=== PATIENT | female | born 1980 | race Caucasian/White ===

== ENCOUNTER → 2017-05-23 15:51 | Outpatient (CLI) | payer MEDICAID, SELFPAY | PROVIDERS: Visit Provider Obstetrics & Gynecology | DX: R30.0 Dysuria (principal) | CPT/HCPCS: 87086; 87088; 87186 ==

== ENCOUNTER → 2017-06-15 16:36 | Outpatient (CLI) | payer MEDICAID, SELFPAY | PROVIDERS: Visit Provider Obstetrics & Gynecology | DX: R31.9 Hematuria, unspecified (principal) | CPT/HCPCS: 87086 ==

== ENCOUNTER → 2017-07-06 15:47 | Outpatient (CLI) | payer MEDICAID, SELFPAY ==
[2017-07-06 17:37] LABS: Follicle Stimulating Hormone 148.4 mIU/mL; Thyroid Stim Hormone (TSH) 1.29 uIU/mL (0.358-3.74)
[2017-07-06 18:40] LABS: Chlamydia Trachomatis by PCR Negative (Negative); Neisserai gonorrhoeae by PCR Negative (Negative); Probe Check PASS; Sample Adequacy Control PASS; Specimen Processing Control PASS
[2017-07-12 15:55] LABS: HPV Reflexed? NOT INDICATED
== END ==
PROVIDERS: Visit Provider Obstetrics & Gynecology
DX: Z12.4 Encounter for screening for malignant neoplasm of cervix (principal); R30.0 Dysuria
CPT/HCPCS: 36415; 83001; 84443; 87086; 87088; 87491; 87591; 88175; G0145

== ENCOUNTER 2018-08-17 15:00 | Emergency (ER) | payer MEDICAID, SELFPAY ==
[2018-08-17 15:01] VITALS: BP 135/85; PULSE 87; RESP 16; TEMP 36.6; O2SAT 100; BMI 24.7
[2018-08-17 15:42] LABS: Absolute Lymphocyte Count 1.45 X10^3/ul (0.83-4.51); Absolute Neutrophil Count 7.9 X10^3/uL (2.0-7.7); Basophil# 0.04 X10^3/uL; Basophil% 0.4 % (0-1); Eosinophil# 0.11 X10^3/uL; Eosinophils% 1.1 % (0-5); Hematocrit 43.2 % (37-47); Hemoglobin 14.6 g/dl (12.0-15.0); Lymphocyte # 1.45 X10^3/ul (4.0); Lymphocyte % 14.6 % (19-41); Mean Corp Hgb Conc 33.8 g/gl (32-36); Mean Corpuscular Volume 97.5 fL (81-99); Monocyte# 0.41 X10^3/uL; Monocyte% 4.1 % (0-10); Neutrophil % 79.5 % (47-70); Platelet Count 213 K/mm3 (150-450); RBC Distribution Width CV 12.1 % (11.6-14.6); RBC Distribution Width SD 42.2 fl (35.1-43.9); Red Blood Count 4.43 M/mm3 (4.2-5.4); White Blood Count 9.9 K/mm3 (4.4-11.0)
[2018-08-17 15:49] LABS: POSITIVE COUNT NO; POSITIVE DIFFERENTIAL NO; POSITIVE MORPHOLOGY NO
[2018-08-17 15:51] LABS: Bacteria 0 SEEN /hpf (None Seen); Mucous, Urine 0 SEEN /hpf (<or=2+); White Blood Cells 0 SEEN /hpf (0-5)
[2018-08-17 16:11] LABS: Color, Urine Yellow (Yellow); Glucose, Dipstick Normal (Normal); Ketone-Dipstick Negative (Negative); Leukocyte Esterase-Dipstick 25 /ul (Negative); Nitrite-Dipstick Negative (Negative); Occult Blood-Urine 25 /ul (Negative); Protein-Dipstick Negative (Negative); Urine Bilirubin Dipstick Negative (Negative); Urine Clarity Clear (Clear); Urine Urobilinogen Normal (Normal)
--- NOTE | 2018-08-17 16:11 | ED.DCSUM_ITS ---
- ER Visit Summary Date of Service: 08/17/18 Chief Complaint: Abdominal pain, nausea, constipation History of Present Illness: The patient is a 37 F who presents with nausea and constipation that began today. Patient states she has had some similar episodes in the past without a definitive diagnosis. Patient states she has some throbbing pain over her tailbone area. Patient states she has been constipated recently. Patient denies any vomiting. Patient states she does have some pain in her lower abdomen. Patient admits to subjective chills but denies any fevers. Physical Examination: Vital signs are stable. Patient is afebrile. Patient is in no acute distress. Oral mucosa is pink and moist. Neck is supple. Trachea is midline. There is no JVD noted. Heart was regular rate and rhythm. Lungs are clear and equal bilateral. Abdomen is soft bowel sounds are normal. There is some mild lower abdominal tenderness. There is no rebound or guarding noted. Musculoskeletal exam reveals tenderness over the right sacroiliac area. There is no midline tenderness. Test Results: CBC was normal. Basic metabolic profile was normal. Urinalysis does not show any evidence of urinary tract infection. Serum hCG was negative. Acute abdominal x-rays were obtained. There is nonspecific bowel gas pattern. There is no evidence of obstruction or constipation. Emergency Department Course and Treatment: Patient was given Zofran here. Patient was feeling better on reevaluation. Patient was instructed to follow-up with her primary care physician in 5 to 7 days. Patient understood and was agreeable with the plan. All questions were answered. Disposition: Discharge home Impression: Abdominal pain This note was generated with [employer] dictation software. It may contain incorrect words, spelling, and punctuation that were not noted in review of the chart prior to signing ED Disposition - Plan for ED Patient: Disposition: Home or Assisted Living Diagnosis: Abdominal pain Instructions: ED Abdominal Pain Unkn Cause Referrals: NOT,DEFINED [NON-STAFF] - 5-7 Days
[2018-08-17 16:15] LABS: Anion Gap 8 (5-15); BUN 16 mg/dL (7-18); BUN/Creat Ratio 18.8 RATIO (10-20); Calcium,Total 8.9 mg/dL (8.5-10.1); Chloride 105 mmol/L (98-107); Creatinine, Serum 0.85 mg/dL (0.55-1.02); EST Glomerular Filtration Rate 80 mL/min (>60); Est Glom Filt Rate - Afr Amer 97 mL/min (>60); Estimated Creatinine Clearance 75.69 ml/min; Glucose 87 mg/dL (74-106); Potassium 4.6 mmol/L (3.5-5.1); Sodium Level 139 mmol/L (136-145)
[2018-08-17 16:24] LABS: Internal QC Validated? YES +Cl - CLEAR BKGD; Pregnancy, Serum, hCG Quali. NEGATIVE Negative
[2018-08-17 16:33] LABS: Red Blood Cells-Urine 0-5 SEEN /hpf (0-5); Squamous Epithelial Cells - UA 0-5 SEEN /hpf (5-10)
[2018-08-17 16:46] VITALS: BP 113/74; PULSE 69; RESP 16; TEMP 36.8; O2SAT 99
[2018-08-17] MEDS: Ondansetron 4 MG/2 ML Vial IV (16:47)
--- NOTE | 2018-08-17 16:56 | RAD_ITS ---
STUDY: X-RAY - ACUTE ABDOMINAL SERIES REASON FOR EXAM: Female, 37 years old. Pain TECHNIQUE: Single view of the chest. Supine, 2 view(s) of the abdomen were obtained. COMPARISON: None. FINDINGS: The lungs are clear. There are no pleural effusions. There is no pneumothorax. The heart is normal in size. There is no bowel obstruction. There is air and stool to the level of the rectum. The visualized osseous structures are within normal limits. RAD/Acute Abdomen Inc Chest IMPRESSION: Clear lungs. No bowel obstruction. Electronically Signed: Timothy Penny, at 17:15 EDT Tel , Service support ,
== END 2018-08-17 17:27 | disposition home or self-care (01) ==
PROVIDERS: Emergency Provider Emergency Medicine
DX: R10.9 Unspecified abdominal pain (principal); K59.00 Constipation, unspecified; M54.9 Dorsalgia, unspecified; R11.0 Nausea; F17.210 Nicotine dependence, cigarettes, uncomplicated
CPT/HCPCS: 74022; 80048; 81001; 84703; 85025; 96374; 99283; A4216; J2405

== ENCOUNTER 2022-01-28 11:24 | Emergency (ER) | payer MEDICAID, SELFPAY ==
[2022-01-28 11:25] VITALS: BP 138/117; PULSE 114; RESP 18; TEMP 35.8; O2SAT 98; BMI 28.3
--- NOTE | 2022-01-28 11:43 | EDS_ITS ---
HPI History of Present Illness Chief Complaint: General Illness Informant: patient Onset/Context/Timing Onset: Days Context: Gradual Onset Timing: Continuous Current Severity: Mild Maximum Severity: Mild Narrative Narrative: 41-year-old female no seen past medical or surgical history. No prior abdominal surgeries. States whenever she eats for the last 4 days she gets gassy, starts having nausea vomiting and signs of diarrhea. She did have a fever about 4 days ago which is since resolved. Denies any dysuria or hematuria. No chills. Currently no abdominal pain. Prior similar symptoms: No Recent Illness/Hospitalization: No PFSH PFSH Medical History no medical history no medical history Home Medications ondansetron 4 mg disintegrating tablet 4 mg PO Q6H PRN nausea and vomiting #7 tabs 01/28/22 [Rx Last Taken Unknown] Allergy/AdvReac Type Severity Reaction Status Date / Time No Known Allergies Allergy Verified 01/28/22 11:26 Surgical History no surgical history no surgical history Social History Smoking Status: Current every day smoker tobacco type: cigarettes ROS ROS ED ROS Narrative Nausea, vomiting and diarrhea. Fever resolved. Review of Systems ROS Unobtainable: Denies due to encephalopathy Constitutional Constitutional ED: Reports fever(s); Denies chills Eyes Eyes: Denies blurry vision ENT ENT ED: Denies ear pain Cardiovascular Cardiovascular: Denies chest pain or palpitations Respiratory/Chest Respiratory/Chest: Denies cough or dyspnea Gastrointestinal Gastrointestinal: Reports diarrhea, nausea and vomiting; Denies abdominal pain, constipation or melena Genitourinary Genitourinary ED: Denies dysuria or hematuria Musculoskeletal Musculoskeletal: Denies arthralgias Integumentary Denies abscess Neurologic Neurologic: Denies headache(s) Psychiatric Psychiatric: Denies anxiety Endocrine Endocrinology: Denies cold intolerance Hematologic/Lymphatic Hematologic/Lymphatic: Reports none Allergic/Immunologic Allergic/Immunologic ED: Denies mouth swelling or tongue swelling EXAM Physical Exam Narrative Exam Narrative: 41-year-old female no acute distress vital signs stable afebrile. She is anxious and tearful. H EENT exam unremarkable. Mildly dry mucous membranes but tears in her eyes. Neck nontender no meningismus. Lungs clear to auscultation bilaterally. Heart regular rhythm rate about 110 no murmur. Abdomen soft, nontender, nondistended with normal bowel sounds. No peritoneal signs. No significant tenderness. No Mota sign McBurney's point tenderness. No hernia or mass. No signs of obstruction. Back nontender. Moving all 4 extremities. No edema. Neurologically she is awake and alert no focal motor deficits. Const Vital Signs: 01/28/22 11:25 01/28/22 11:45 Temperature 96.4 F L Temperature Source Temporal Pulse Rate 114 H Respiratory Rate 18 Respiratory Effort Normal Respiratory Pattern Normal Blood Pressure 138/117 H Blood Pressure Mean 124 Pulse Ox 98 Oxygen Delivery Method Room Air Positive well nourished and well developed; Negative for cachectic, contractures or unkempt General Appearance ED: well developed and NAD; Negative for unkempt, cachectic, contractures, cyanotic, diaphoretic or pallor Nutritional Appearance: Negative for cachectic HEENT Reports dry mucous membranes; Denies moist mucous membranes Negative for trauma Mouth ED: Yes dry mucous membranes Mouth: dry mucous membranes Eyes PERRL and EOMs intact bilaterally General Eye ED: Negative for pale conjunctiva or scleral icterus Neck no lymphadenopathy, supple and no JVD General: Negative for tenderness Lymph Lymphatic: Negative for other Chest Wall inspection of chest normal and palpation of chest normal Resp normal respiratory effort and clear to auscultation bilaterally Effort and Inspection: Negative for retractions Auscultation: Negative for rales or rhonchi Cardio regular rhythm, S1 normal heart sound, S2 normal heart sound and no murmurs; Negative for regular rate Rate: tachycardic Rhythm: Negative for abnormal rhythm GI normal to inspection, nondistended, normoactive bowel sounds, non-tender, non- distended, hepatosplenomegaly and no masses Inspection: Negative for abdominal distention Auscultation: normoactive bowel sounds Palpation: soft; Negative for tender, guarding or splenomegaly Back/Spine no CVA tenderness General Back: Negative for CVA tenderness Cervical Spine: Negative for cervical spine tenderness Thoracic Spine / Upper Back: Negative for thoracic spinal tenderness Lumbar Spine / Lower Back: Negative for lumbar spinal tenderness Extremity normal to inspection General Extremety ED: Negative for edema or tenderness General Extremity: Negative for edema Neuro oriented x3 and CN's II-XII intact bilaterally Sensorium / Orientation: alert; Negative for orientation impaired or stuporous Motor Exam: strength 5/5 throughout Psych mental status grossly normal Appearance: Negative for unkempt Attitude: agitated Mood & Affect: tearful; Negative for depressed or anxious Skin no rashes or lesions noted, no wounds and skin turgor normal General Skin Exam: elasticity normal; Negative for jaundice or pallor Lesions: No lesion noted Rashes: No rashes noted Trauma: Negative for abrasion Wounds: Negative for wounds noted MDM MDM MDM Narrative Medical decision making narrative: 41-year-old with nausea vomiting and diarrhea when she eats. Abdomen is benign. Differential would include viral gastroenteritis versus gallbladder disease versus other. She clinically appears to be mildly dehydrated. She will be given IV fluids, Zofran. Screening labs to be obtained. No imaging needed at this time if labs are substantially abnormal that will be a consideration. Repeat exam patient doing well at 12:45 PM. Abdomen is completely benign. No right upper or right lower discussed all of her test results. Clinically this will be treated as a viral gastroenteritis. She will be given another dose of IV Zofran prior to discharge. She is currently drinking p.o. fluids. I will send a prescription of Zofran to her pharmacy. Lab Data Attestation: I reviewed the patient's lab results. Lab results narrative: CBC White count 4.2. H&H is 16.9 and 49. Platelets are slightly low at iron 34,000. Electrolytes potassium 3.3 gap of 10 BUN and creatinine of 17 and 1. Liver enzymes are normal other than AST is 66. Lipase normal 171. Labs: Laboratory Results - last 24 hr 01/28/22 01/28/22 11:50 11:50 WBC 4.2 L RBC 4.93 Hgb 16.9 H Hct 49.6 H MCV 100.6 H MCH 34.3 H MCHC 34.1 RDW Std Deviation 44.4 H RDW Coeff of Varinder 11.9 Plt Count 134 L MPV 11.4 Immature Gran % (Auto) 1.700 H Neut % (Auto) 61.3 Lymph % (Auto) 27.6 [place] % (Auto) 8.2 Eos % (Auto) 0.7 Baso % (Auto) 0.5 Absolute Neuts (auto) 2.6 Absolute Lymphs (auto) 1.15 Nucleated RBC % 0 Sodium 136 Potassium 3.3 L Chloride 101 Carbon Dioxide 25.0 Anion Gap 10 BUN 17 Creatinine 1.07 H Estim Creat Clear Calc 57.81 Est GFR (MDRD) Af Amer 73 Est GFR (MDRD) Non-Af 60 BUN/Creatinine Ratio 15.9 Glucose 104 Calcium 9.4 Total Bilirubin 0.60 AST 66 H ALT 50 Alkaline Phosphatase 77 Total Protein 7.9 Albumin 4.0 Globulin 3.9 Albumin/Globulin Ratio 1.0 Lipase 171 Discharge Plan Triage Chief Complaint: General Illness ED Provider: Perfecto Stevenson Dx/Rx/DC Orders Clinical Impression: Viral gastroenteritis, Acute dehydration Instructions: ED Gastroenteritis, Viral (Adult) Prescriptions: New ondansetron 4 mg tablet,disintegrating 4 mg PO Q6H PRN (Reason: nausea and vomiting) Qty: 7 0RF Primary Care Provider: Care Physician,No Primary Referrals: Suresh Giang MD [Med Staff - [employer]] - 3-5 Days if not improving Care Physician,No Primary [Primary Care Provider] - Activity Restrictions/Additional Instructions: Your labs were unremarkable other than your platelet count was just below normal as was your potassium both of those should improve. This appears to be a viral gastroenteritis. Plenty of fluids and rest. Increase diet slowly as tolerated. Zofran as needed for nausea which she may swallow or let it dissolve on your tongue. Follow-up if not improving or return if feeling worse. If not improving we may need to get an ultrasound of your gallbladder but not at this time. Disposition Disposition: Home, Self Care
[2022-01-28] MEDS: 0.9% Normal Saline 1,000 ML 1000 ML IV (11:51)
[2022-01-28] MEDS: Ondansetron 4 MG/2 ML Vial IV ×2 (11:52→13:01)
[2022-01-28 12:07] LABS: Absolute Lymphocyte Count 1.15 X10^3/uL (0.83-4.51); Absolute Neutrophil Count 2.6 X10^3/uL (2.0-7.7); Basophil# 0.02 X10^3/uL; Basophil% 0.5 % (0-1); Eosinophil# 0.03 X10^3/uL; Eosinophils% 0.7 % (0-5); Hematocrit 49.6 % (37-47); Hemoglobin 16.9 g/dL (12.0-15.0); Lymphocyte # 1.15 X10^3/ul (0.83-4.51); Lymphocyte % 27.6 % (19-41); Mean Corp Hgb Conc 34.1 g/dL (32-36); Mean Corpuscular Hgb 34.3 pg (27.0-32.0); Mean Corpuscular Volume 100.6 fL (81-99); Mean Platelet Vol. 11.4 fl (6.2-12.0); Monocyte# 0.34 X10^3/uL; Monocyte% 8.2 % (0-10); NRBC Flagged by Analyzer 0 % (0-5); Neutrophil # 2.56 X10^3/uL (2.7-7.7); Neutrophil % 61.3 % (47-70); Platelet Count 134 K/mm3 (150-450); RBC Distribution Width CV 11.9 % (11.6-14.6); RBC Distribution Width SD 44.4 fl (35.1-43.9); Red Blood Count 4.93 M/mm3 (4.2-5.4); White Blood Count 4.2 K/mm3 (4.4-11.0)
--- NOTE | 2022-01-28 12:10 | CM.ED ---
SW Note Referral Source: Case Find Referral Reason: No Primary Care Physician (PCP) SW reviewed chart and noted that patient has no PCP. SW provided patient with list of [facility] Physician List for reference. SW also provided patient with handout ?Where to go When?. No other issues or concerns voiced at this time. SW remains available for any additional needs. Plan: Provided patient with PCP information Sabrina OLGUIN
[2022-01-28 12:20] LABS: AST(SGOT) 66 U/L (15-37); Alanine Aminotransfer ALT/SGPT 50 U/L (13-56); Alkaline Phosphatase 77 U/L (45-117); Anion Gap 10 (5-15); BUN 17 mg/dL (7-18); BUN/Creat Ratio 15.9 RATIO (10-20); Calcium,Total 9.4 mg/dL (8.5-10.1); Chloride 101 mmol/L (98-107); Creatinine, Serum 1.07 mg/dL (0.55-1.02); EST Glomerular Filtration Rate 60 mL/min (>60); Est Glom Filt Rate - Afr Amer 73 mL/min (>60); Estimated Creatinine Clearance 57.81 ml/min; Globulin 3.9 g/dL (2.2-4.2); Glucose 104 mg/dL (74-106); Lipase 171 U/L (73-393); Potassium 3.3 mmol/L (3.5-5.1); Protein, Total 7.9 g/dL (6.4-8.2); Sodium Level 136 mmol/L (136-145)
== END 2022-01-28 13:08 | disposition home or self-care (01) ==
PROVIDERS: Emergency Provider Emergency Medicine; Visit Provider Emergency Medicine
DX: E86.0 Dehydration (principal); A08.4 Viral intestinal infection, unspecified; F17.210 Nicotine dependence, cigarettes, uncomplicated
CPT/HCPCS: 80053; 83690; 85025; 96361; 96374; 96376; 99283; J7030; A4216; J2405

== ENCOUNTER 2022-02-01 07:58 | Emergency (ER) | payer MEDICAID, SELFPAY ==
[2022-02-01 07:58] VITALS: BP 127/100; PULSE 116; RESP 14; TEMP 36.3; O2SAT 98; BMI 28.3
--- NOTE | 2022-02-01 08:11 | EDS_ITS ---
HPI History of Present Illness Chief Complaint: Nausea/Vomiting Informant: patient Narrative Narrative: 41-year-old female presenting to the emergency room with vomiting and diarrhea. She was seen at the end of last week for same and was prescribed Zofran after r eceiving IV fluids and basic blood work was obtained. She continues to have diarrhea and vomiting. She denies any current fevers. She describes the stool as brown and mucousy. She notes some fecal incontinence. She notes decreased urination and dry mouth. She states that she feels very dehydrated. She has been trying to drink water and Pedialyte but continues to vomit that up. No recent travel or bad food exposure. No recent antibiotics. No is no history of colitis. She does note that her youngest child was sick with vomiting and diarrhea for 2 days last week and the child has subsequently recovered. PFSH PFSH Medical History no medical history Home Medications ondansetron HCl 4 mg tablet 4 mg PO Q6H PRN nausea and vomiting #15 tabs 02/01/22 [Rx Last Taken Unknown] Allergy/AdvReac Type Severity Reaction Status Date / Time No Known Allergies Allergy Verified 02/01/22 07:59 Surgical History no surgical history Social History (Updated 02/01/22 @ 08:[address] Dhruv Mittal, DO) Smoking Status: Current every day smoker tobacco type: cigarettes substance use type: does not use ROS ROS ED Constitutional Constitutional ED: Denies chills, fever(s) or weight loss Eyes Eyes: Denies change in vision or diplopia ENT ENT ED: Denies ear pain, rhinorrhea or sore throat Cardiovascular Cardiovascular: Denies chest pain, orthopnea, palpitations or racing heartbeat Respiratory/Chest Respiratory/Chest: Denies cough, dyspnea or orthopnea Gastrointestinal Gastrointestinal: Reports diarrhea, nausea and vomiting; Denies abdominal pain Genitourinary Genitourinary ED: Denies dysuria, hematuria or urinary frequency Musculoskeletal Musculoskeletal: Denies arthralgias or myalgias Integumentary Denies abscess or rash Neurologic Neurologic: Denies headache(s) or weakness Psychiatric Psychiatric: Denies anxiety, depression, suicidal ideation or suicidal thoughts Endocrine Endocrinology: Denies polydipsia, polyphagia or polyuria Allergic/Immunologic Allergic/Immunologic ED: Denies mouth swelling, tongue swelling or urticaria EXAM Physical Exam Const Vital Signs: 02/01/22 07:58 Temperature 97.3 F L Temperature Source Temporal Pulse Rate 116 H Respiratory Rate 14 Blood Pressure 127/100 H Blood Pressure Mean 109 Pulse Ox 98 Oxygen Delivery Method Room Air Positive well nourished and well developed General Appearance ED: well developed HEENT Reports normocephalic, head/scalp atraumatic and dry mucous membranes Mouth ED: Yes dry mucous membranes Mouth: dry mucous membranes Eyes PERRL and EOMs intact bilaterally Neck no lymphadenopathy, supple and no JVD Resp normal respiratory effort and clear to auscultation bilaterally Cardio regular rate and no murmurs Rate: tachycardic GI normal to inspection, nondistended, normoactive bowel sounds and non-tender Palpation: soft Back/Spine no CVA tenderness and normal ROM Extremity normal to inspection General Extremety ED: Negative for edema General Extremity: Negative for edema Neuro oriented x3 and CN's II-XII intact bilaterally Sensorium / Orientation: alert Motor Exam: strength 5/5 throughout Psych mental status grossly normal Mood & Affect: Negative for depressed or tearful Skin no rashes or lesions noted and no wounds MDM MDM MDM Narrative Medical decision making narrative: Patient received 2 L of IV fluids as well as Zofran. CBC shows a white count of 4.5 and hemoglobin of 16.8. Platelet count is slightly thrombocytopenic at 107. She continues to be slightly hypokalemic at 3.1 with a CO2 of 19. Anion gap of 14 BUN 16 with a creatinine 0.81. The patient's abdominal exam is benign. Overall the patient clinically feels better and I would agree that she continues to have a viral gastroenteritis. I can write for some additional Zofran would also recommend Imodium as needed. Return if worsening or concerns Lab Data Attestation: I reviewed the patient's lab results. Labs: Laboratory Results - last 24 hr 02/01/22 02/01/22 08:25 08:25 WBC 4.5 RBC 4.92 Hgb 16.8 H Hct 48.7 H MCV 99.0 MCH 34.1 H MCHC 34.5 RDW Std Deviation 43.6 RDW Coeff of Varinder 11.9 Plt Count 107 L MPV 12.1 H Immature Gran % (Auto) 0.200 Neut % (Auto) 51.3 Lymph % (Auto) 38.7 [place] % (Auto) 8.4 Eos % (Auto) 0.7 Baso % (Auto) 0.7 Absolute Neuts (auto) 2.3 Absolute Lymphs (auto) 1.75 Nucleated RBC % 0 Sodium 139 Potassium 3.1 L Chloride 106 Carbon Dioxide 19.0 L Anion Gap 14 BUN 16 Creatinine 0.81 Estim Creat Clear Calc 76.37 Est GFR (MDRD) Af Amer 100 Est GFR (MDRD) Non-Af 83 BUN/Creatinine Ratio 19.7 Glucose 122 H Calcium 9.9 Total Bilirubin 1.40 H AST 83 H ALT 110 H Alkaline Phosphatase 76 Total Protein 8.0 Albumin 4.2 Globulin 3.8 Albumin/Globulin Ratio 1.1 Lipase 113 Discharge Plan Triage Chief Complaint: Nausea/Vomiting ED Provider: Dhruv Mittal Dx/Rx/DC Orders Clinical Impression: Viral gastroenteritis, Acute dehydration Instructions: ED Gastroenteritis, Viral (Adult) Prescriptions: New ondansetron HCl 4 mg tablet 4 mg PO Q6H PRN (Reason: nausea and vomiting) Qty: 15 0RF Primary Care Provider: Care Physician,No Primary Referrals: Care Physician,No Primary [Primary Care Provider] - Disposition Disposition: Home, Self Care
[2022-02-01] MEDS: 0.9% Normal Saline 1,000 ML 999 ML IV ×2 (08:26→09:14)
[2022-02-01] MEDS: Ondansetron 4 MG/2 ML Vial IV (08:27)
[2022-02-01 08:38] LABS: Absolute Lymphocyte Count 1.75 X10^3/uL (0.83-4.51); Absolute Neutrophil Count 2.3 X10^3/uL (2.0-7.7); Basophil# 0.03 X10^3/uL; Basophil% 0.7 % (0-1); Eosinophil# 0.03 X10^3/uL; Eosinophils% 0.7 % (0-5); Hematocrit 48.7 % (37-47); Hemoglobin 16.8 g/dL (12.0-15.0); Lymphocyte # 1.75 X10^3/ul (0.83-4.51); Lymphocyte % 38.7 % (19-41); Mean Corp Hgb Conc 34.5 g/dL (32-36); Mean Corpuscular Hgb 34.1 pg (27.0-32.0); Mean Platelet Vol. 12.1 fl (6.2-12.0); Monocyte# 0.38 X10^3/uL; Monocyte% 8.4 % (0-10); NRBC Flagged by Analyzer 0 % (0-5); Neutrophil # 2.32 X10^3/uL (2.7-7.7); Neutrophil % 51.3 % (47-70); Platelet Count 107 K/mm3 (150-450); RBC Distribution Width CV 11.9 % (11.6-14.6); RBC Distribution Width SD 43.6 fl (35.1-43.9); Red Blood Count 4.92 M/mm3 (4.2-5.4); White Blood Count 4.5 K/mm3 (4.4-11.0)
[2022-02-01 08:52] LABS: ALB/GLOB Ratio 1.1 RATIO (0.9-2.4); AST(SGOT) 83 U/L (15-37); Alanine Aminotransfer ALT/SGPT 110 U/L (13-56); Albumin, Serum 4.2 g/dL (3.2-5.0); Alkaline Phosphatase 76 U/L (45-117); Anion Gap 14 (5-15); BUN 16 mg/dL (7-18); BUN/Creat Ratio 19.7 RATIO (10-20); Calcium,Total 9.9 mg/dL (8.5-10.1); Chloride 106 mmol/L (98-107); Creatinine, Serum 0.81 mg/dL (0.55-1.02); EST Glomerular Filtration Rate 83 mL/min (>60); Est Glom Filt Rate - Afr Amer 100 mL/min (>60); Estimated Creatinine Clearance 76.37 ml/min; Globulin 3.8 g/dL (2.2-4.2); Glucose 122 mg/dL (74-106); Lipase 113 U/L (73-393); Potassium 3.1 mmol/L (3.5-5.1); Sodium Level 139 mmol/L (136-145)
[2022-02-01 10:02] VITALS: BP 128/90; PULSE 88; RESP 16; O2SAT 99
== END 2022-02-01 10:14 | disposition home or self-care (01) ==
PROVIDERS: Emergency Provider Emergency Medicine; Visit Provider Emergency Medicine
DX: E86.0 Dehydration (principal); A08.4 Viral intestinal infection, unspecified; R15.9 Full incontinence of feces; F17.210 Nicotine dependence, cigarettes, uncomplicated
CPT/HCPCS: 80053; 83690; 85025; 99283; J7030; A4216; J2405